=== PATIENT | female | born 1950 | race Caucasian/White ===

== ENCOUNTER 2017-01-24 04:11 | Day surgery (SDC) | payer MEDICARE, OTHER ==
[2017-01-16 14:39] LABS: HEMOGLOBIN 14.3 g/dL (12.0-16.0)
[2017-01-16 14:52] LABS: CALCIUM, SERUM 9.6 MG/DL (8.5-10.4); CHLORIDE, SERUM 103 MMOL/L (96-112); CO2 (CARBON DIOXIDE) 31 MMOL/L (24-34); CREATININE 1.13 MG/DL (0.55-1.02); GFR AFRICAN AMERICAN 58 ML/MIN (>=60); GFR NON AFRICAN AMERICAN 50 ML/MIN (>=60); GLUCOSE, SERUM 94 MG/DL (60-99); POTASSIUM, SERUM 4.2 MMOL/L (3.5-5.3); SODIUM, SERUM 138 MMOL/L (135-148)
[2017-01-16 14:53] LABS: BUN (BLOOD UREA NITROGEN) 24 MG/DL (6-23)
--- NOTE | ~2017-01-24 | OP ---
Record Of Operation [facility] [address] [place]. [address] NAME: KARLEY OSMAN : 48 STATUS : [place] [facility] [place] PAT#: [id number] AGE: 66 ADM/REG DATE : 01/24/17 MR#: [id number] REPORT SERV DATE: 01/24/17 DICTATED BY: KEYUR VELASQUEZ DATE: 01/24/17 REPORT STATUS : Draft TRANSCRIBED BY: MODL DATE: 01/24/17 DATE OF PROCEDURE: 01/24/2017 PREOPERATIVE DIAGNOSES: Cervical spondylosis, spinal stenosis, disk degeneration at C5-6 and C6-7. POSTOPERATIVE DIAGNOSES: Cervical spondylosis, spinal stenosis, disk degeneration at C5-6 and C6-7.. PROCEDURE: 1. Microscopic and navigation-assisted surgery. 2. Anterior cervical diskectomy and foraminotomy at C5-6 and C6-7. 3. Anterior interbody fusion with cortical cancellous allograft at C5-6 and C6-7. 4. Anterior segmental spinal instrumentation with Venture plating at C5-7. CONTINUOUS IMPROVEMENT ENGINEER: Carlos Vaca. ANESTHESIA: General. BLOOD LOSS: 20 mL. INDICATIONS FOR SURGERY: A very pleasant 66-year-old female with neck pain, shoulder and arm pain bilaterally. She an x-ray evidence of a spondylosis and disk degeneration and foraminal narrowing as well as MRI evidence of spinal stenosis in the foraminal zone at C5-6 and C6-7. She has failed time, medication, therapy, and usual conservative care. She is brought to surgery for the above procedure. Prior to the surgery, risks, benefits, alternatives, and expectations have been explained. Consent form has been signed. Today, in the preop holding area, the patient was identified. All questions were answered. The patient voiced understanding of the risks, willingness to accept those, and requested to proceed with surgery. DESCRIPTION OF PROCEDURE: Antibiotic prophylaxis was given and neurophysiology monitoring leads were inserted. The patient was brought to the operative suite. General anesthetic including endotracheal intubation was administered. She was in a supine position on fluoroscopic Sushil spine frame. A small bolster was placed behind the shoulders and the neck was in a slightly extended position. The scalp was painted with Betadine solution. Garduno 3-point fixation attached to the skull using 60 pounds of torque in standard position. The Garduno was attached to the [facility]. [employer] navigational registration frame was attached to the [place]. Isolation drapes were placed. The neck was scrubbed with Hibiclens solution. DuraPrep was painted. Sterile drapes applied. Because of the complexity of surgery and the need to identify correct level of surgery intraoperatively as well as desire to carry out the safest and most precise dissection, I felt that intraoperative navigation was mandatory. Record Of Operation [facility] [address] [place]. [address] NAME: KARLEY OSMAN : 48 STATUS : [place] [facility] [place] PAT#: [id number] AGE: 66 ADM/REG DATE : 01/24/17 MR#: [id number] REPORT SERV DATE: 01/24/17 DICTATED BY: KEYUR VELASQUEZ DATE: 01/24/17 REPORT STATUS : Draft TRANSCRIBED BY: MORRO DATE: 01/24/[address] scan with O-arm was obtained. CT information was used to register the navigational system. With navigational assistance, I identified C5-6 and C6-7. At the mid body of C6, a transverse 3 cm Roberto-Jasmine skin incision was carried out. The platysma muscle was incised in line with the skin incision. The superficial layer of the deep cervical fascia was released along the anterior border of the sternocleidomastoid. Blunt dissection was carried out to the retropharyngeal space where the longus coli muscles were subperiosteally elevated. Retractors were placed and the microscope were sterilely draped and used throughout the remainder of procedure. With navigational assistance, I identified C6 and C7. A Mesa distractor pin was placed in the bodies of C6 and C7. Anterior osteophytes were debrided with a bur. Anterior diskectomy was carried out with curettes and rongeurs. Posteriorly, I debrided the uncinate processes and carried out removing the posterior longitudinal ligament and the foraminotomy with 1 and 2 mm Kerrison rongeurs. The width, depth, and height of disk space were measured. The wound was irrigated. A wedge-shaped cortical cancellous allograft was inserted. Traction released locking the graft in good position. Next, I moved to C5-6. I again identified the correct level. I placed a Mesa distractor pin and carried out the same identical anterior diskectomy, foraminotomy, and interbody fusion. Finally, and a 6-hole Venture plate was placed over the anterior bodies of C5, 6, and 7. It was centered properly with navigational assistance. Once the plate was placed, the 6-hole was drilled and the locking screws inserted providing rigid stability. Final intraoperative AP and lateral x-ray showed good position of all implants of the C5-7. The wound was meticulously inspected. No bleeding was noted. No drain was necessary. The platysma was closed with a running 3-0 Vicryl suture. The subcutaneous tissue was closed with 3-0 Vicryl suture. Subcuticular 4-0 PDS was used for skin closure. Sterile dressings applied. The patient was awakened, extubated, and taken recovery room in satisfactory condition having tolerated the procedure well. Sponge, needle, and instrument counts were correct. No intraoperative complications were noted. SAVANNA/MORRO Keyur Velasquez D.O. / [id number] CC: Record Of Operation [address] [address] NAME: KARLEY OSMAN : 48 STATUS : REG [facility] [place] PAT#: [id number] AGE: 66 ADM/REG DATE : 01/24/17 MR#: [id number] REPORT SERV DATE: 01/24/17 DICTATED BY: KEYUR VELASQUEZ DATE: 01/24/17 REPORT STATUS : Draft TRANSCRIBED BY: MORRO DATE: 01/24/17 Mary Brothers M.D.
[~2017-01-24 04:11] MED LIST: ASA5GR PO; BUFFERIN PO; CICLESONIDE INH; COREGCR40 PO; CRESTOR20 MG PO; DRONED400 PO; ELIQUIS 5 MG TAB5 MG PO; FLONASE NAS; KLOR-CON 88 MEQ PO; L20 PO; L40 PO; LISINOPRIL40 MG PO; LIVALO2 MG PO; LOVAZA1 GM PO; NASONEX NAS; PLAVIX PO; PRIN10 PO; SINGULAIR1 PO; SPIRIVA INH; TAMBOCOR PO; ULTRAM50 PO; VASCEPA1 GM PO; VENTOLIN HFA INH; VITAMIN D1000 UNI1 PO; VIVELLE-DOT0.0375 MG TOP; ZANAFLEX 4 MG TA4 MG PO; ZOL50 PO
== END 2017-01-24 13:48 | disposition home or self-care (01) ==
LOC: SDC 04:11
PROVIDERS: Orthopaedic Surgery Orthopaedic Surgery of the Spine
PROC: 0RG20A0 Fusion of 2 or more Cervical Vertebral Joints with Interbody Fusion Device, Anterior Approach, Anterior Column, Open Approach (ICD-10-PCS; principal; 2017-01-24 05:45)
PROC: 0RG2070 Fusion of 2 or more Cervical Vertebral Joints with Autologous Tissue Substitute, Anterior Approach, Anterior Column, Open Approach (ICD-10-PCS; 2017-01-24 05:45)
DX: M47.812 Spondylosis without myelopathy or radiculopathy, cervical region (principal); M50.322 Other cervical disc degeneration at C5-C6 level; M50.323 Other cervical disc degeneration at C6-C7 level; I10 Essential (primary) hypertension; I48.91 Unspecified atrial fibrillation; I44.7 Left bundle-branch block, unspecified; E78.00 Pure hypercholesterolemia, unspecified; J45.909 Unspecified asthma, uncomplicated; G47.30 Sleep apnea, unspecified; Z88.8 Allergy status to other drugs, medicaments and biological substances; Z79.01 Long term (current) use of anticoagulants; Z79.52 Long term (current) use of systemic steroids; Z79.899 Other long term (current) drug therapy; Z88.5 Allergy status to narcotic agent; Z91.09 Other allergy status, other than to drugs and biological substances; Z85.118 Personal history of other malignant neoplasm of bronchus and lung; Z90.2 Acquired absence of lung [part of]; Z90.49 Acquired absence of other specified parts of digestive tract; Z90.89 Acquired absence of other organs; Z90.710 Acquired absence of both cervix and uterus; Z98.890 Other specified postprocedural states
CPT/HCPCS: 80048; 82962; 85014; 85018; 87641; 88304; 88311; 93005; A9270-GY; C1713; C1768; J0690; J1170; J2250; J2405; J2710; J3010